=== PATIENT | male | born 1935 | race Caucasian/White ===

== ENCOUNTER 2017-01-07 07:02 | Emergency (ER) | payer MEDICARE, OTHER ==
[~2017-01-07] VITALS: Ht 170.2 cm; Wt 90.7 kg
[~2017-01-07 07:02] MED LIST: ASPIRIN EC325 MG PO; ATENOLOL50 MG PO; CYCLOBENZAPRINE10 MG PO; HYDROCHLOROTHIA25 MG PO; LISINOPRIL40 MG PO; NORCO 5-325 TA1 EACH PO; SIMVASTATIN20 MG PO
[2017-01-07] MEDS ORDERED: XARELTO15 MG PO (07:17)
[2017-01-07] MEDS ORDERED: FISH OIL + D31 EACH PO (07:17)
== END 2017-01-07 08:40 | disposition home or self-care (01) ==
LOC: ED 07:02
DX: S68.122A Partial traumatic metacarpophalangeal amputation of right middle finger, initial encounter (principal); I10 Essential (primary) hypertension; I25.10 Atherosclerotic heart disease of native coronary artery without angina pectoris; I48.91 Unspecified atrial fibrillation; Y93.G3 Activity, cooking and baking; Z79.899 Other long term (current) drug therapy; W45.8XXA Other foreign body or object entering through skin, initial encounter
CPT/HCPCS: 12001; 90471; 90715; 99282

== ENCOUNTER 2018-12-02 09:32 | Emergency (ER) | payer MEDICARE, OTHER ==
[~2018-12-02] VITALS: Ht 170.2 cm; Wt 97.5 kg
[~2018-12-02 09:32] MED LIST changes: +FISH OIL + D31 EACH PO; +XARELTO15 MG PO
[2018-12-02] MEDS ORDERED: ALLOPURINOL100 MG PO (09:46)
[2018-12-02] MEDS ORDERED: METOPROLOL SUC100 MG PO (09:46)
[2018-12-02] MEDS ORDERED: CYCLOBENZAPRINE10 MG PO (10:39)
[2018-12-02] MEDS ORDERED: ULTRAM50 MG PO (10:39)
--- OUTSIDE RECORDS SUMMARY | 2018-12-02 11:06 | XMS ---
PreManage Notification: CURLY RAGLAND Security Staffing Manager Events No recent Security Events currently on file CRITERIA MET - [facility] [place] [facility] PROVIDERS Clark Guerrero Internal Medicine: Pulmonary Disease 12/02/2018-Current PHONE: Unknown Shaheen He MD Primary Care Current PHONE: Unknown stephany Goins or Automotive Technology Instructor Current PHONE: Unknown Nathaniel HE Current PHONE: Unknown Stephanie has no Care Guidelines for this patient. Care History Medical/Surgical 12/02/2018 [facility] - Patient is currently established with [facility]. If patient is seen in the ED during business hours. Please contact [facility] at [facility]. Care Recommendation: This patient has had 5 or more Emergency Department visits in the last 12 months.\T\nbsp; Patient requires education on the scope and purpose of the ED as an acute care provider not a Primary Care Provider and should not be utilized for chronic conditions.\T\nbsp; These are guidelines and the provider should exercise clinical judgment when providing care. E.D. VISIT COUNT (12 MO.) 1 [facility]. TOTAL 1 NOTE: Visits indicate total known visits. ED/UCC VISIT TRACKING (12 MO.) 12/02/2018 09:[address] [facility] TYPE: Emergency COMPLAINT: - BACK PAIN INPATIENT VISIT TRACKING (12 MO.) No inpatient visits to display in this time frame [email or web address]
== END 2018-12-02 11:26 | disposition home or self-care (01) ==
LOC: ED 09:32
DX: S39.92XA Unspecified injury of lower back, initial encounter (principal); X58.XXXA Exposure to other specified factors, initial encounter; I10 Essential (primary) hypertension; I48.91 Unspecified atrial fibrillation; I25.10 Atherosclerotic heart disease of native coronary artery without angina pectoris; Z87.891 Personal history of nicotine dependence; Z79.899 Other long term (current) drug therapy
CPT/HCPCS: 99283